=== PATIENT | male | born 1950 | race Caucasian/White ===

== ENCOUNTER → 2017-09-14 | Outpatient (CLI) | payer BC, OTHER ==
[~2017-09-14] MED LIST: CELEXA10 MG PO; COZAAR25 MG PO; LEVEMIR FL100 UNIT/1 SC; LOVASTATIN20 MG PO; NOVOLOG PE100 UNITS/ SC; PROTONIX40 MG PO
== END | disposition home or self-care (01) ==
LOC: AMB 12:30
PROC: 0CB0XZZ Excision of Upper Lip, External Approach (ICD-10-PCS; principal; 2017-09-14)
DX: L82.0 Inflamed seborrheic keratosis (principal); Z85.6 Personal history of leukemia; E11.9 Type 2 diabetes mellitus without complications; Z79.4 Long term (current) use of insulin
CPT/HCPCS: 88305